=== PATIENT | male | born 1980 | race Caucasian/White ===

== ENCOUNTER → 2020-05-25 08:08 | Outpatient (BNVA) | payer OTHER, SELFPAY | PROVIDERS: PCP Internal Medicine; Visit Provider Dietitian, Registered | DX: Z76.89 Persons encountering health services in other specified circumstances (principal) ==

== ENCOUNTER → 2020-07-19 08:08 | Outpatient (BNVA) | payer BC, OTHER, SELFPAY | PROVIDERS: PCP Internal Medicine; Referring Provider Internal Medicine; Visit Provider Physician Assistant | DX: Z76.89 Persons encountering health services in other specified circumstances (principal) ==

== ENCOUNTER 2025-07-24 20:05 | Emergency (ER) | payer SELFPAY ==
[2025-07-24 20:18] VITALS: BP 120/68; PULSE 95; RESP 16; TEMP 37.2; O2SAT 96; BMI 31.9
--- NOTE | 2025-07-24 20:19 | ED.URI ---
HPI - URI/Sore Throat General Chief Complaint: General Medical Stated Complaint: difficulty swallowing, hard hearing Time Seen by Provider: 07/24/25 22:30 Source: patient Mode of arrival: ambulatory Limitations: no limitations History of Present Illness ED Provider: James MAURICIO HPI Narrative: The patient is a pleasant 45-year-old male presenting with approximately 1-2 weeks of right-sided ear pain, now accompanied by a sore throat that began today. Pain is primarily in the right ear but is also present, though milder, in the left ear. He reports associated dysphagia but tolerates p.o. fluids and his own secretions, denies associated cough, chest pain, shortness of breath, abdominal pain, vomiting, diarrhea, known recent sick contacts, or any recent trauma. He reports a subjective fever and was found to have a temperature of 100.6 ?F in the ED. He also reports his voice has become deeper, which prompted his ED evaluation, denies trismus. He has been self-treating with DayQuil with minimal effect. He denies recent antibiotic use and denies medication allergies. Related Data Previous Rx's ?Medication ?Instructions ?Recorded acetaminophen 500 mg capsule 1,000 mg (2 x 500 mg) PO .q8 PRN 07/24/25 fever or pain #30 caps amoxicillin 500 mg capsule 500 mg PO BID #20 caps 07/24/25 cyclobenzaprine 10 mg tablet 10 mg PO TID PRN muscle spasm #14 07/24/25 tabs Allergies Allergy/AdvReac Type Severity Reaction Status Date / Time No Known Allergies (No Known Allergy Verified 07/24/25 20:20 Allergies*) Review of Systems Review of Systems: Yes all other systems are reviewed and are negative FOR[facility]LY [facility] Past Medical History Surgical History (Updated 07/13/20 @ 11:06 by Araseli Mcelroy MA) History of sleeve gastrectomy Hx of arthroscopic knee surgery Family History Family History (Updated 07/13/20 @ 11:07 by Araseli Mcelroy MA) Father Sleep apnea Arthritis Mother No problems noted. Brother No problems noted. Sister No problems noted. Sister No problems noted. Daughter No problems noted. Social History Social History (Updated 07/13/20 @ 11:08 by Araseli Mcelroy MA) Alcohol intake: never Advance Directives: No Advance Directives Information Provided: No Do you have a plan to hurt others: No Plan Physical Exam Vital Signs: Vital Signs: Last Vital Signs Temp 100.6 F H 07/24/25 22:24 Pulse 108 H 07/24/25 22:24 Resp 18 07/24/25 22:24 BP 120/64 07/24/25 22:24 Pulse Ox 99 07/24/25 22:24 O2 Del Method Room Air 07/24/25 22:24 BMI result Body Mass Index 31.9 CONSTITUTIONAL: The patient appears non-toxic, well nourished and in no acute distress. Vital signs as documented. HEAD: Atraumatic, normocephalic. EYES: EOMs grossly intact, pupils equal, conjunctiva clear, no exudate. ENT: Nares patent, no discharge. Airway patent, no audible stridor, visible mucosa is pink and moist without noted lesions. There is bilateral tonsillitis with exudate, uvula is midline and nonedematous, no evidence of peritonsillar swelling/abscess. Bilateral TMs are unremarkable, no erythema, mild bulging noted on the left. NECK: Trachea is midline, no obvious masses or gross abnormalities. Mild bilateral anterior cervical lymphadenopathy, full nonpainful range of motion, no meningismus. CHEST: Symmetric movement, normal appearance. LUNGS: LS present and CTAB, no w/r/r. Non-labored work of breathing. CARDIAC: Regular Rhythm, S1/S2 appreciated, no murmurs, rubs or gallops. ABDOMEN: Abdomen soft and non-tender x4 quadrants, no palpable masses or organomegaly. : Deferred. EXTREMITIES: Normal tone, moves all extremities spontaneously without reported pain. No obvious acute injury or deformity noted. NEURO: Alert and oriented x3, CN II-XII appear grossly intact. Cerebellar Functioning grossly intact. No obvious sensory or motor deficits. Speech clear and appropriate. PSYCH: normal affect, appropriate eye contact, fluid speech, with appropriate response to questioning. No reported suicidality or homicidality. SKIN: Warm, dry, color appropriate, normal turgor. No rashes noted. 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 Defer additional HPI, ROS and PE to primary provider. 45 yo male with no medical history here with sore throat, right ear pain, chills, fevers, diarrhea. Has had ear pain x 2 weeks, all other symptoms today. WIll obtain viral testing, strep testing. VSS Medications Administered Discontinued Medications Generic Name Dose Route Start Last Admin Trade Name Kat PRN Reason Stop Dose Admin Acetaminophen 975 mg 07/24/25 22:29 07/24/25 22:38 Acetaminophen 325 Mg Tablet PO 07/24/25 22:30 975 mg ONCE ONE Administration Ibuprofen 600 mg 07/24/25 22:29 07/24/25 22:38 Ibuprofen 600 Mg Tablet PO 07/24/25 22:30 600 mg ONCE ONE Administration Medical Decision Making Medical Decision Making [facility] Narrative: 11:16 PM 07/24/2025 (Adarsh MAURICIO): The patient is a pleasant 45-year-old male presenting with approximately 1-2 weeks of right-sided ear pain, now accompanied by a sore throat that began today. Pain is primarily in the right ear but is also present, though milder, in the left ear. He reports associated dysphagia but tolerates p.o. fluids and his own secretions, denies associated cough, chest pain, shortness of breath, abdominal pain, vomiting, diarrhea, known recent sick contacts, or any recent trauma. He reports a subjective fever and was found to have a temperature of 100.6 ?F in the ED. He also reports his voice has become deeper, which prompted his ED evaluation, denies trismus. He has been self-treating with DayQuil with minimal effect. He denies recent antibiotic use and denies medication allergies. On exam the patient has bilateral tonsillitis with exudate, uvula is midline and nonedematous, no evidence of peritonsillar swelling/abscess. The patient's bilateral TMs are unremarkable, no erythema, mild bulging noted on the left. There is mild cervical anterior lymphadenopathy noted, no meningismus or impaired range of motion of the neck. Remainder of exam is benign. The patient's laboratory evaluation tested negative for COVID, RSV, influenza, and strep throat. However given the patient's / Cent[facility] criteria we will treat presumptively for strep throat with a amoxicillin while awaiting throat culture. We will also treat with a single dose of Decadron for comfort due to significant bilateral tonsillar swelling. Patient will be discharged with a 10 day course of amoxicillin and supportive care. Lab Data Labs: Lab Results 12/20/25 Range/Units 20:36 Influenza Type A (PCR) NEGATIVE (Negative) Influenza Type B (PCR) NEGATIVE (Negative) RSV RNA Qual (PCR) NEGATIVE (Negative) SARS-CoV-2 RNA (RT-PCR) NEGATIVE (Negative) S. pyogenes GrpA TRACY Negative (Negative) Discharge Plan Discharge Clinical Impression: Streptococcal pharyngitis Patient Disposition: Home, Self-Care Instructions: Pharyngitis (ED), Strep Throat (ED) Additional Instructions: Thank you for choosing [facility]'s Emergency Department for your care today. Thankfully your viral swabs today were negative for COVID, influenza, and RSV. At this time there is no indication for admission to the hospital or continued ED observation, and it is safe to discharge you home. Your throat swab was also negative for bacterial strep throat, however this was a rapid strep test. The swab will be sent for a culture which takes more time but is more sensitive and accurate. Due to your symptoms, which meet 4/4 criteria most commonly associated with true bacterial strep throat, as well as the duration of your symptoms, we will presumptively treat you with amoxicillin while awaiting the results of your throat culture. Please take amoxicillin twice daily until finished. You should take alternating (staggered) doses of ibuprofen 600mg and Tylenol 1000mg every 4 hours as needed for any additional pain. Please stay well hydrated and get plenty of rest. Please follow up with your primary care physician for re-evaluation, additional management of your symptoms, and continued preventative care. If you do not have a primary care physician, please call the [facility] at [phone] to establish a new primary care physician. While waiting to establish your new primary care physician, you can call our [facility] at [phone] for non-emergency needs. Please return to the emergency department if you develop a severe or sudden change in your symptoms, a fever over 100.4 that does not improve with Tylenol or Ibuprofen, recurrent vomiting, or any other new or worsening symptoms or concerns. Prescriptions: New cyclobenzaprine 10 mg tablet 10 mg PO TID PRN (Reason: muscle spasm) Qty: 14 0RF acetaminophen 500 mg capsule 1,000 mg PO .q8 PRN (Reason: fever or pain) Qty: 30 0RF amoxicillin 500 mg capsule 500 mg PO BID Qty: 20 0RF Referrals: Tenzin Messina III, MD [Primary Care Provider, Medical] Clinical Impression: Streptococcal pharyngitis Print Language: Upper Sorbian
[2025-07-24 20:54] LABS: IDNOW Serial# 16C4AD1C; Strep A Nucleic Acid Negative (Negative)
[2025-07-24 21:19] LABS: Resp Syncy Virus RNA Qual PCR NEGATIVE (Negative); SARS COV2 PCR INHOUSE NEGATIVE (Negative)
[2025-07-24 22:24] VITALS: BP 120/64; PULSE 108; RESP 18; TEMP 38.1; O2SAT 99
--- NOTE | 2025-07-24 22:31 | PC.NURSE ---
Received verbal order from LULY Ramirez for 600 mg ibuprofen and 975 mg Tylenol to treat fever.
[2025-07-24 23:57] VITALS: BP 120/64; PULSE 108; RESP 18; TEMP 38.1; O2SAT 99
[2025-07-24 23:58] VITALS: TEMP 37.3
== END 2025-07-24 23:58 | disposition home or self-care (01) ==
PROVIDERS: Nurse Practitioner Family; Emergency Provider Student in an Organized Health Care Education/Training Program; PCP Internal Medicine
DX: J02.0 Streptococcal pharyngitis (principal); H92.01 Otalgia, right ear; Z03.818 Encounter for observation for suspected exposure to other biological agents ruled out; R13.10 Dysphagia, unspecified
CPT/HCPCS: 87637; 87651; 99283; 99284; J8540